=== PATIENT | female | born 1975 | race Hispanic/Latino ===

== ENCOUNTER 2019-07-07 08:16 | Outpatient (CLI) | payer OTHER ==
--- NOTE | 2019-07-07 10:10 | ULT ---
ULTRASOUND SOFT TISSUE OTHER: Date: 07/07/2019 HISTORY: Mass of left arm. COMPARISON: None. FINDINGS: In the subcutaneous fat just below the skin surface in the left arm area of interest is an echogenic focus which is homogeneous measuring up to 2.0 cm in size. This is wider than tall and contained with in the subcutaneous fat. IMPRESSION: Relatively homogeneous echogenic mass in the region of interest of left arm measuring 2.0 cm in size. This is characteristic of lipoma. If this continues to enlarge or develop progressive pain, surgical consultation would be advised. POS: OFF
== END 2019-07-07 08:17 | disposition home or self-care (01) ==
LOC: MADULT 08:16
PROVIDERS: ATTEND Family Medicine
DX: R22.32 Localized swelling, mass and lump, left upper limb (principal)
CPT/HCPCS: 76999

== ENCOUNTER 2022-02-13 11:42 | Emergency (ER) | payer OTHER ==
[2022-02-13] MEDS ORDERED: Aspirin Chewable 81 MG TAB ONE (12:05)
[2022-02-13 12:17] LABS: #Basophils 0.1 thou/uL (0.0-0.2); #Eosinphils 0.1 thou/uL (0.0-0.7); #Lymphocytes 2.2 thou/uL (1.20-3.40); #Monocytes 0.4 thou/uL (0.11-0.59); #Neutrophils 4.5 thou/uL (1.40-6.50); %Basophils 0.9 % (0.0-1.0); %Eosinophils 1.3 % (0.0-10.0); %Monocytes 5.4 % (0.0-10.0); %Neutrophils 62.5 % (42.0-75.0); Hemoglobin 14.8 g/dL (12.0-16.0); Mean Corpuscular HGB CONC 33.7 g/dL (32.0-36.0); Mean Corpuscular Hemoglobin 29.9 pg (27.0-31.0); Mean Corpuscular Volume 88.6 fL (78.0-98.0); Mean Platelet Volume 8.6 fL (7.4-10.4); Platelet Count 320 thou/uL (130-400); RBC Distribution Width 12.2 % (11.5-14.5); Red Blood Cell (RBC) Count 4.95 mill/uL (4.20-5.40); White Blood Cell (WBC) Count 7.2 thou/uL (4.8-10.8)
[2022-02-13 12:34] LABS: ALT (SGPT) 22 U/L (8-55); AST (SGOT) 16 U/L (5-34); Albumin 4.6 g/dL (3.5-5.0); Alkaline Phosphatase 57 U/L (40-110); Anion Gap 16 mmol/L (10-20); BHCG - Serum Negative (NEGATIVE); BUN (Urea Nitrogen) 10 mg/dL (7.0-18.7); Bilirubin, Total 0.4 mg/dL (0.2-1.2); Calc. Creatinine Clearance 0 mL/min (70-130); Calcium 9.2 mg/dL (7.8-10.44); Carbon Dioxide 20 mmol/L (22-29); Chloride 107 mmol/L (98-107); Estimated GFR 101; Glucose 84 mg/dL (70-105); Potassium 3.6 mmol/L (3.5-5.1); Pregs Control Background? CLEAR/WHITE (CLR/WHITE); Pregs Control Bar Appear? YES (CONTROL BAR); Protein, Total 7.6 g/dL (6.0-8.3); Sodium 139 mmol/L (136-145)
[2022-02-13 15:09] LABS: Troponin I Less than 0.010 ng/mL (< 0.028)
== END 2022-02-13 15:31 | disposition home or self-care (01) ==
LOC: MADERS 11:42
DX: R07.89 Other chest pain (principal); E78.00 Pure hypercholesterolemia, unspecified; I10 Essential (primary) hypertension; Z79.899 Other long term (current) drug therapy
CPT/HCPCS: 71045; 80053; 83880; 84484; 84703; 85025; 93005